=== PATIENT | female | born 2000 | race American Indian/Alaskan Native ===

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

== ENCOUNTER 2020-03-16 18:10 | Emergency (ER) | payer MEDICAID ==
[~2020-03-16] VITALS: Ht 154.9 cm; Wt 108.2 kg
[2020-03-16 19:30] VITALS: BP 101/68; PULSE 84; TEMP 98
== END 2020-03-16 20:08 | disposition home or self-care (01) ==
LOC: COL.ER 18:10
DX: J06.9 Acute upper respiratory infection, unspecified (principal); H92.03 Otalgia, bilateral; Z20.828 Contact with and (suspected) exposure to other viral communicable diseases; Z87.891 Personal history of nicotine dependence